=== PATIENT | female | born 1995 | race Caucasian/White ===

== ENCOUNTER 2021-09-26 19:10 | Emergency (ER) | payer OTHER ==
[~2021-09-26] VITALS: Ht 165.1 cm; Wt 59.0 kg
--- NOTE | 2021-09-26 19:10 | NUR ---
[facility] TO ER BED 7
[2021-09-26 19:16] VITALS: BP 155/92
--- NOTE | 2021-09-26 19:26 | NUR ---
25/F BIBA, PER EMS PATIENT WAS FOUND BY [employer] "PULSELESS" STATING TWO ROUNDS OF CPR PERFORMED ON SCENE AND 12MG NARCAN GIVEN INTRANASALLY BY PD. UPON ARRIVAL PATIENT AOX4, ANSWERING QUESTIONS. PT ADMITS TO SMOKING METH, WEED AND CONSUMING UNKNOWN AMOUNT OF ALCOHOL THIS MORNING, STATES SHE TOOK "TWO HITS OF FENTANYL" WITH A GIRL SHE JUST MET. PATIENT DENIES CP, SOB, REPORTS 7/10 HEADACHE. PATIENT PLACED ON BEDSIDE COMMERCIAL PHOTOGRAPHER, DR. MASON EVALUATING PATIENT UPON ARRIVAL.
--- NOTE | 2021-09-26 19:32 | NUR ---
PT IN GOWN ON BEDSIDE MONITOR
--- NOTE | 2021-09-26 19:52 | NUR ---
25YR OLD FEMALE BIB EMS OVERDOSE. PT WAS FOUND "PULSELESS" BY PD IN [place] AND 2 ROUNDS CPR WAS PERFORMED. PT WAS A&OX4 ON ARRIVAL TO ED. NARCAN GIVEN BY PD IN FIELD. PT STATES HAVING A AMBROSIO 09/04. DENIES CP OR SOB. IS NAUSEOUS. FRONT TOOTH IS MISSING . PT STATES THAT THIS WAS NEW , DOES NOT REMEMBER FALLING OR HITTNG FACE/MOUTH. NO ACTIVE BLEEDING AND AIR IS PATENT. RESP EVEN AND UNLABORED. PT ON ZOO KEEPER. 20G IV CATH PLACED IN R AC. NKDA NO MED HX
--- NOTE | 2021-09-26 19:59 | NUR ---
VERBAL ORDER YVES CLEMENS PER DR MASON
[2021-09-26] MEDS ORDERED: ONDANSETRON 4 MG ODT PO ONE (20:00)
[2021-09-26] MEDS ORDERED: ONDANSETRON 4 MG ODT ONE (20:02)
--- NOTE | 2021-09-26 22:30 | NUR ---
PT AMBULATED TO BATHROOM STEADY GAIT.
[2021-09-26] MEDS ORDERED: ACETAMINOPHEN EXTRA STRENGTH 500 MG TAB PO ONE (23:40)
--- NOTE | 2021-09-27 00:18 | NUR ---
PT IN BED WITH SIDE RAILS UP X2. CALLED PT GRANDMOTHER PER REQUEST OF PT, LEFT MESSAGE. PT HAS BEEN EMOTIONAL . PT ON THORACIC SURGEON
--- NOTE | 2021-09-27 00:42 | NUR ---
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 HOB ELEVATED. SIDE RAILS DOWN. PAIN LEVEL WAS 0/10. PENDING DISPO
--- NOTE | 2021-09-27 05:52 | NUR ---
PT ASLEEP , ON DOOR REPAIRMAN. PT WILL BE DC THIS AM. VS WNL. RESP EVEN AND UNLABORED
--- NOTE | 2021-09-27 07:16 | NUR ---
GRANDMOTHER [phone] MOTHER [phone]
--- NOTE | 2021-09-27 09:47 | NUR ---
TALK TO PT GRANDMOTHER THAIS [phone], SHE WILL BUTTON GRADER THE PT WITHIN THE NEXT HOUR.
[2021-09-27 10:22] VITALS: BP 121/75
--- NOTE | 2021-09-27 10:24 | NUR ---
Patient discharged with v/s stable. Written and verbal after care instructions given and explained. Patient verbalized understanding. Ambulatory with steady gait. All questions addressed prior to discharge. Advised to follow up with PMD.
--- NOTE | 2021-09-27 10:30 | NUR ---
PATIENT WAITING IN LOBBY FOR PROPERTY HANDLER BY MOM
--- NOTE | 2021-09-27 10:33 | NUR ---
The patient's care was reviewed and supervised by Smitha Quick RN.
== END 2021-09-27 10:22 | disposition home or self-care (01) ==
LOC: MED 19:10
DX: T40.411A Poisoning by fentanyl or fentanyl analogs, accidental (unintentional), initial encounter (principal); R55 Syncope and collapse; F15.90 Other stimulant use, unspecified, uncomplicated; Y92.89 Other specified places as the place of occurrence of the external cause
CPT/HCPCS: 99283; Q0162